=== PATIENT | male | born 1955 | race Caucasian/White ===

== ENCOUNTER → 2016-12-06 | Outpatient (CLI) | payer BC ==
[~2016-12-06] MED LIST: PANT1TAB48 PO
[2016-12-06 09:23] LABS: BASO % 0.4 %; BASO ABS # 0.03 K/uL (0-0.2); COMPLETE YES; EOS % 7.5 %; HEMATOCRIT 42.1 % (42-52); IG% 0.3 %; LYMPH % 26.5 %; MEAN CELL VOLUME 92.7 fL (80-100); MEAN CORPUSCULAR HEMOGLOBIN 31.3 pg (25-34); MEAN CORPUSCULAR HGB CONC 33.7 g/dl (32-36); MEAN PLATELET VOLUME 9.3 fL (7.4-10.4); MONO % 10.7 %; NEUT % 54.6 %; PLATELET COUNT 232 K/uL (130-400); RED BLOOD COUNT 4.54 M/uL (4.7-6.1); WHITE BLOOD COUNT 7.18 K/uL (4.8-10.8)
[2016-12-06 10:17] LABS: BLOOD UREA NITROGEN 19 mg/dl (7-18); BUN/CREATININE RATIO 18.8 (10-20); CALCIUM 8.4 mg/dl (8.5-10.1); CARBON DIOXIDE 29 mmol/L (21-32); CHLORIDE 108 mmol/L (98-107); CHOLESTEROL 181 mg/dl (0-200); CREATININE 0.99 mg/dl (0.60-1.40); GLUCOSE 106 mg/dl (70-99); POTASSIUM 4.2 mmol/L (3.5-5.1); SODIUM 144 mmol/L (136-145)
[2016-12-06 10:21] LABS: CHOLESTEROL/HDL RATIO 4.3; HDL CHOLESTEROL 42 mg/dl; LDL CHOLESTEROL CALCULATED 120 mg/dl; PROSTATE SPECIFIC ANTIGEN 0.844 ng/ml (0.000-4.000); TRIGLYCERIDES 96 mg/dl (0-150); VERY LOW DENSITY LIPOPROT CALC 19 mg/dl
== END | disposition home or self-care (01) ==
LOC: C.LAB1850 08:39
PROVIDERS: ATTEND Internal Medicine
DX: Z12.5 Encounter for screening for malignant neoplasm of prostate (principal); Z13.220 Encounter for screening for lipoid disorders; Z13.1 Encounter for screening for diabetes mellitus; K26.9 Duodenal ulcer, unspecified as acute or chronic, without hemorrhage or perforation

== ENCOUNTER → 2017-03-13 | Outpatient (CLI) | payer BC ==
--- NOTE | 2017-03-13 12:55 | DIAGNOSTIC IMAGING REPORT ---
CHEST 2 VIEWS ROUTINE HISTORY: ACUTE BRONCHITIS COMPARISON: Chest 07/17/2013. FINDINGS: The lungs are clear. Cardiac silhouette is normal in size. No pleural effusions. No pneumothorax. IMPRESSION: No acute process. Electronically signed by: Jim Renee M.D. 03/13/2017 12:53 PM Dictated Date/Time: 03/13/2017 12:50 PM
== END | disposition home or self-care (01) ==
LOC: C.RADBC 12:15
PROVIDERS: ATTEND Physician Assistant Medical
DX: J20.9 Acute bronchitis, unspecified (principal)

== ENCOUNTER → 2017-11-18 | Outpatient (CLI) | payer BC ==
[~2017-11-18] MED LIST changes: +PANT1TAB3 PO; -PANT1TAB48 PO
[2017-11-18 10:34] LABS: BLOOD UREA NITROGEN 12 mg/dl (7-18); BUN/CREATININE RATIO 13.7 (10-20); CALCIUM 8.3 mg/dl (8.5-10.1); CARBON DIOXIDE 30 mmol/L (21-32); CHLORIDE 107 mmol/L (98-107); CREATININE 0.84 mg/dl (0.60-1.40); GLUCOSE 114 mg/dl (70-99); POTASSIUM 4.1 mmol/L (3.5-5.1); SODIUM 140 mmol/L (136-145)
[2017-11-18 10:39] LABS: CHOLESTEROL 155 mg/dl (0-200); CHOLESTEROL/HDL RATIO 3.8; HDL CHOLESTEROL 41 mg/dl; LDL CHOLESTEROL CALCULATED 98 mg/dl; PROSTATE SPECIFIC ANTIGEN 0.733 ng/ml (0.000-4.000); TRIGLYCERIDES 79 mg/dl (0-150); VERY LOW DENSITY LIPOPROT CALC 16 mg/dl
[2017-11-18 12:08] LABS: ESTIMATED AVERAGE GLUCOSE 128 mg/dl; HA1C FLAG Normal (Normal)
== END | disposition home or self-care (01) ==
LOC: C.LAB1850 09:14
PROVIDERS: ATTEND Internal Medicine
DX: Z12.5 Encounter for screening for malignant neoplasm of prostate (principal); I10 Essential (primary) hypertension; R73.9 Hyperglycemia, unspecified

== ENCOUNTER 2020-03-27 08:03 | Inpatient (IN) ==
--- NOTE | 2020-03-23 11:10 | Anesthesiology Consultation ---
Date of Service March 23, 2020 Assessment & Plan (1) Encounter for pre-operative examination: Chart Review Chart Review: Acceptable Risk for Surgery (pending anesthesiologist discretion AM of surgery after evaluation ) and Patient NOT seen in Pre Admission Testing EKG showed new onset septal infarct. Did discuss with Dr. Benitez. Will leave to anesthesiologist discretion DOS if repeat EKG needed. Will also need to discuss functional status and if patient having any limiting factors such as chest pain, WATKINS/SOB. Chart review: Patient not seen at PAT/no RN phone interview at time of review. Chart review from available information. Will need to review PMHX/PSHX AM DOS. Will also need height and weight documented- per 03/22/20 general surgery note- BMI 34.2. Seen in ER on 03/16/20= seen for severe abdominal pain. No emergent surgery needed at that time. Set up to see general surgery as outpatient. [place] abdominal pain secondary to hernia. Seen by PCP 10/26/19= DM- Hgb A1C decreased from previous to 6.3. Hyperlipidemia and HTN- stable. 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 F/u in six months. History Surgery Operation Date: 03/27/20 08:10 Proposed Procedures p Laparoscopic Incarcerated Incisional Hernia Repair, Possible Open - Yury Cohen MD, FACS Allergies Allergy/AdvReac Type Severity Reaction Status Date / Time No Known Drug Allergies Allergy Verified 03/22/20 09:22 Medications Home Medications Medication Instructions Recorded Confirmed Last Taken amlodipine [Norvasc] 5 mg PO QAM 03/11/20 03/22/20 03/16/20 Past Medical History Medical History Diabetes Duodenal ulcer Dyslipidemia Epidermal cyst Hypertension Venous insufficiency Past Family History Family History Sister Cancer Mother Diabetes Other COPD (chronic obstructive pulmonary disease) Coronary heart disease Family history of diabetes mellitus Denies family history of Ovarian cancer Prostate cancer Myocardial infarction Breast cancer Colorectal cancer Past Surgical History Surgical History Esophageal dilatation History of pancreatic surgery 2004- Whipple Procedure S/P cholecystectomy S/P hernia repair (01/06/04) Right inguinal hernia with mesh 01/06/04 Dr. Cohen Social History Smoking Status: Former smoker Hx Alcohol Use: No (SOCIAL) Hx Substance Use: No Testing Laboratory Results Laboratory Tests 10/22/19 03/16/20 03/16/20 07:50 14:13 14:13 WBC 6.60 Hgb 14.0 Hct 42.2 Plt Count 253 Sodium 137 Potassium 3.9 Chloride 109 H Carbon Dioxide 29 BUN 12 Creatinine 0.99 Glucose 170 H Hemoglobin A1c 6.3 H Electrocardiogram Date: 03/16/20 Findings: + SB @ (52bpm) Left axis deviation. Incomplete RBBB. Septal infarct, age undetermined. Non specific T wave abnormality. Compared to EKG from Jul 19, 2013, Incomplete RBBB has replaced non specific intraventricular conduction delay; spetal infarct now present. Chest X-Ray Date: 03/16/20 Findings: + NAD
[~2020-03-27 08:03] MED LIST changes: +CEFAZOLIN 2000MG 2,000 MG/15 ML SYR IV SCH; +LR 15ML/HR IV SCH; -PANT1TAB3 PO
[2020-03-27] MEDS ORDERED: ATROPINE SULFATE 0.1 MG/ML 10ML SYR IV PRN (08:59)
[2020-03-27] MEDS ORDERED: fentaNYL citrate 100 MCG/2 ML VIAL IV PRN (08:59)
[2020-03-27] MEDS ORDERED: ONDANSETRON INJ 2 MG/ML 2 ML VIAL IV PRN ×2 (08:59→15:08)
[2020-03-27] MEDS ORDERED: ePHEDrine sulfate 50 MG/ML AMP IV PRN (08:59)
[2020-03-27] MEDS ORDERED: PROPOFOL IV EMULSION 10 MG/ML 20 ML VIAL IV ONE (09:45)
[2020-03-27] MEDS ORDERED: ROCURONIUM BROMIDE 10 MG/ML 5 ML VIAL ONE ×2 (09:45→10:03)
[2020-03-27] MEDS ORDERED: LIDOCAINE HCL 2% 2 ML VIAL/AMP(20MG/ML) INFIL ONE (09:45)
[2020-03-27] MEDS ORDERED: GLYCOPYRROLATE 0.2 MG/ML VIAL ONE ×2 (09:45→14:16)
[2020-03-27] MEDS ORDERED: ONDANSETRON INJ 2 MG/ML 2 ML VIAL ONE (09:45)
[2020-03-27] MEDS ORDERED: MIDAZOLAM HCL 1 MG/ML 2ML VIAL ONE (09:45)
[2020-03-27] MEDS ORDERED: NEOSTIGMINE METHYLSULFATE 5 MG/5 ML SYR ONE (09:45)
[2020-03-27] MEDS ORDERED: fentaNYL citrate 100 MCG/2 ML VIAL ONE (09:46)
[2020-03-27] MEDS ORDERED: BUPIVACAINE 0.5 % 5 MG/1 ML MPF 30ML VIAL ONE (09:56)
[2020-03-27] MEDS ORDERED: LIDOCAINE HCL 1% 20 ML VIAL ONE (09:57)
--- NOTE | 2020-03-27 10:07 | History & Physical Bridge Note ---
Date of Service March 27, 2020 History & Physical Bridge Note I have examined the patient, reviewed the History & Physical and in the interval since the performance of the History & Physical I have noted the following changes of clinical significance: no changes noted
[2020-03-27] MEDS ORDERED: CEFAZOLIN 250 MG/ML 1 GM VIAL ONE (10:09)
[2020-03-27] MEDS ORDERED: HEPARIN SOD 5,000 UNIT/0.5 ML VIAL SQ STA (10:09)
[2020-03-27] MEDS ORDERED: HEPARIN SOD 5,000 UNIT/0.5 ML VIAL ONE (10:10)
[2020-03-27] MEDS ORDERED: ePHEDrine sulfate 50 MG/ML SYR ONE (11:09)
[2020-03-27] MEDS ORDERED: ACETAMINOPHEN 1000 MG/100 ML IV IV ONE (11:50)
[2020-03-27] MEDS ORDERED: HYDROmorphone INJ 2 MG/ML SYR/VIAL ONE (12:04)
[2020-03-27] MEDS ORDERED: PHENYLEPHRINE 100MCG/ML 5ML SYR ONE (13:19)
--- NOTE | 2020-03-27 13:27 | Post Operative Brief Note ---
PG Immediate Post Op with CF Date of Surgery March 27, 2020 Pre & Post Diagnosis Operation Date: 03/27/20 10:40 Pre-Op Diagnosis: Incarcerated Incisional Hernia Post-Op Diagnosis: Incarcerated Incisional Hernia I identified the patient and participated in the time-out.: Yes Procedure Operation Date: 03/27/20 10:40 Actual Procedures p Laparoscopy, Open Incarcerated Incisional Hernia Repair with Mesh(Not Applicable) - Yury Cohen MD, FACS Surgeon Yury Cohen MD, FACS [employer] Inspector Gianna Vallejo Estimated Blood Loss 50 Findings Consistent with Post-Op Diagnosis Specimens Specimen Description: Permanent: A: Hernia Sac & contents Drains Olivera Catheter (16fr inserted by Margi Preston RN without difficulty) and Jeronimo- Cho Drain (x2)
--- NOTE | 2020-03-27 14:00 | Operative Report (OR) ---
DATE OF OPERATION: 03/27/2020 NAME OF OPERATION: Laparoscopy with open incisional hernia repair with mesh. PREOPERATIVE DIAGNOSIS: Incisional hernia with incarceration. POSTOPERATIVE DIAGNOSIS: Incisional hernia with incarceration. STAFF SURGEON: Yury Cohen MD. SANITARIAN AIDE: Caroline Vallejo PA-C ANESTHESIA: General. DESCRIPTION OF PROCEDURE: The patient was brought in the operating room and placed on the operating table in supine position. His abdomen was prepped and draped in usual fashion. Pneumatic stockings, orogastric tube were placed. My autopsy assistant helped with prepping, draping, repair of the hernia and closure of the wounds. Initially, the skin and subcutaneous tissue were anesthetized on the left side. Incision made carrying dissection down, entering the abdominal cavity under visualization, placing a 5 mm port, producing pneumoperitoneum. A balloon cannula was then placed at this level and then under visualization, two 5 mm ports were placed just below the balloon cannula on the left side. The patient had a significant incarcerated hernia just above the umbilicus, which was within the incision and also a second defect above that containing small bowel and colon. The dissection was extremely difficult secondary to adhesions and I was concerned there would be an injury to the bowel and I was unable to reduce the initial hernia with the adipose tissue; therefore, we removed the ports and made an incision in the midline over the hernia through previous scar tissue carrying dissection down identifying the hernia sac, opening the sac, excising part of the sac and contents and then the small bowel and colon were very adherent through a separate area above this and these adhesions were taken down. There was some serosal opening, but no enterotomies. The serosa was repaired with interrupted 3-0 silk suture of the small bowel. I was able to mobilize the tissue in a subfascial fashion well around the defect, which was approximately 5-6 cm in length. I chose a piece of coated polypropylene, which was C-QUR. I trimmed it to approximately 10 cm diameter and then placed in a retrofascial fashion with interrupted #1 Ethibond suture, being careful to keep the coated part of the mesh toward the bowel. I was not able to close the fascia because of the size of the hernia and tension. Therefore, two #15 round Jeronimo-Cho drains were placed in the subcutaneous space. Subcutaneous tissue reapproximated using 2-0 plain suture and then the skin reapproximated using charlie and 3-0 nylon. The lateral incisions were closed using subcuticular 4-0 Monocryl for the upper larger incision with Steri-Strips and then 4-0 nylon for the lower incisions. The patient did have a Olivera catheter in place, which was to be left in place. He was taken to recovery room in stable condition. I attest to the content of the Intraoperative Record and any orders documented therein. Any exception s are noted below.
--- NOTE | 2020-03-27 14:42 | Anesthesiology Progress Note ---
Date of Service March 27, 2020 Anesthesia Post Procedure Vital Signs Vital Signs: Temp Pulse Pulse Resp BP Pulse Ox 03/27/20 14:35 97.2 F L 46 L 17 137/76 95 03/27/20 14:25 97.2 F L 48 L 16 129/72 94 03/27/20 14:15 51 L 15 143/81 H 98 03/27/20 14:07 97.5 F L 53 L 18 143/81 H 99 03/27/20 08:33 98.4 F 54 L 20 149/81 H 96 Transfer of Care Handoff Completed per policy Notes Mental Status: alert / awake / arousable and participated in evaluation Patient Amnestic to Procedure: Yes Nausea / Vomiting: adequately controlled Pain: adequately controlled Airway Patency, RR, SpO2: stable & adequate BP & HR: stable & adequate Hydration State: stable & adequate Anesthetic Complications: no major complications apparent and Pt Satisfied with anesthetic care
[2020-03-27] MEDS ORDERED: PROMETHAZINE HCL 25 MG in SODIUM CHLORIDE 0.9% 50 ML IV PRN (15:08)
[2020-03-27] MEDS ORDERED: HYDROmorphone INJ 0.5 MG/0.5 ML SYR IV PRN (15:08)
[2020-03-27] MEDS ORDERED: HYDROmorphone INJ 1 MG/ML SYRINGE IV PRN (15:08)
[2020-03-27] MEDS ORDERED: PROMETHAZINE HCL 12.5 MG in SODIUM CHLORIDE 0.9% 50 ML IV PRN (15:08)
[2020-03-27] MEDS: NSS + 20MEQ KCL 20 MEQ/1,000 ML BAG IV SCH (16:20)
--- NOTE | 2020-03-27 17:54 | Hospitalist Consultation ---
Date of Consultation March 27, 2020 Assessment & Plan (1) Incarcerated incisional hernia: management per primary service. SP repair (2) Diabetes: Currently in prediabetic range. Continue life style changes. (3) Dyslipidemia: LDL at goal at 98. will recommend rechecking as an outpatient. (4) Hypertension: B/P at goal. Continue amlodipine. DVT proph: as per primary service. Thank you for allowing us to participate in the care of your patient. If any issue arises, please do not hesitate to contact us. Will sign off. History of Present Illness Reason for Consultation: Medical Management Attending Physician: Yury Cohen MD, FACS History of Present Illness 64 yo male who is admitted with incarcerated ventral hernia, S/P repair. Patient has history of hypertension and prediabetes. Patient reports feeling sore at the surgical site. Patient denies any fever, chills, nausea, vomiting. Allergies Allergy/AdvReac Type Severity Reaction Status Date / Time No Known Drug Allergies Allergy Verified 03/27/20 08:31 Home Medications Home Medications Medication Instructions Recorded Confirmed Type amlodipine [Norvasc] 5 mg PO QAM 03/11/20 03/27/20 History vit C,A-Ik-ijbxr-lutein-zeaxan 1 tab PO QAM 03/24/20 03/27/20 History [PreserVision AREDS-2] Patient History Medical History Duodenal ulcer Epidermal cyst left underarm GI bleed history of Hypertension Macular degeneration monthly eye injection Pleurisy 30+ years ago Prediabetes diet controlled Pulmonary embolism x2 in 2004 Surgical History Esophageal dilatation History of adenoidectomy History of colonoscopy History of esophagogastroduodenoscopy (EGD) History of pancreatic surgery 2004- Whipple Procedure History of tonsillectomy S/P cholecystectomy S/P hernia repair (01/06/04) Right inguinal hernia with mesh 01/06/04 Dr. 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 Other Information That Helps Us Care for You: No Feels Safe at Home: Yes Safety Concerns: Feels Safe At This Time Smoking Status: Former smoker Tobacco Type: cigarettes ; packs per day: 1 ; Smoking End Date: 1988 ; Second Hand Exposure: No ; Hx Alcohol Use: No Hx Substance Use: No Dental Care, Regularly: Yes Seatbelt Use: always Sunscreen Use: No Review of Systems Constitutional: no fever, no sweats and no malaise Eyes: no blind spots, no diplopia and no discharge Ear, Nose, Mouth, Throat: no ear trauma and no hyperacusis Respiratory: no change in sputum Cardiovascular: no chest pain with activity Gastrointestinal: no bloating and no hematemesis Musculoskeletal: no radicular pain Integumentary: no rash Neurologic: no falls and no paralysis Psychiatric: no hopelessness Physical Exam Constitutional: WD/WN, vitals as above well developed Eyes: PERRL, conjunctivae normal, anicteric sclerae Neck: trachea midline, no thyromegaly Respiratory: normal respiratory effort, lungs clear to auscultation Cardiovascular: RRR, no murmur, no edema Gastrointestinal (Abdomen): tender to superficial palpation, abd. binder noted. Skin: no rashes, warm and dry Psychiatric: A+Ox3, euthymic affect Results & Data Results & Data ([facility]) Vital Signs (Past 12 Hours) Vital Signs Temp Pulse Pulse Resp BP Pulse Ox 03/27/20 16:45 36.6 C 52 L 17 131/74 100 03/27/20 15:51 36.6 C 48 L 17 130/75 95 03/27/20 15:17 36.7 C 48 L 16 124/73 95 03/27/20 14:45 36.7 C 56 L 16 153/82 H 93 03/27/20 14:35 36.2 C L 46 L 17 137/76 95 03/27/20 14:25 36.2 C L 48 L 16 129/72 94 03/27/20 14:15 51 L 15 143/81 H 98 03/27/20 14:07 36.4 C L 53 L 18 143/81 H 99 03/27/20 08:33 36.9 C 54 L 20 149/81 H 96 PG Care Time/CCT Total # of Minutes Spent Total Time Spent with Patient: Total time spent is greater than 50% in coordination of care (as documented) at patient's floor/unit and/or counseling patient: Coding Level of Care Code 86304 Inpt Consult Level 3 Diagnoses Incarcerated incisional hernia K43.0 Diabetes E11.9 Dyslipidemia E78.5 Hypertension I10 Time Spent (min) 35
[2020-03-27] MEDS: CEFAZOLIN 1000MG 1,000 MG/7.5 ML SYR IV SCH (18:03)
[2020-03-27] MEDS: MAGNESIUM HYDROXIDE SUSP 30 ML UDC PO SCH (20:41)
[2020-03-27] MEDS: DOCUSATE SODIUM/SENNA 50/8.6MG TAB PO SCH (20:41)
[2020-03-28] MEDS: CEFAZOLIN 1000MG 1,000 MG/7.5 ML SYR IV SCH ×3 (03:00→18:46)
[2020-03-28] MEDS: NSS + 20MEQ KCL 20 MEQ/1,000 ML BAG IV SCH ×2 (04:52→21:09)
[2020-03-28 05:46] LABS: Basophils # (auto) 0.02 K/uL (0-0.2); Basophils % (auto) 0.2 %; Eosinophils # (auto) 0.35 K/uL (0-0.5); Hematocrit (blood only) 40.3 % (42-52); Hemoglobin 13.4 g/dL (14.0-18.0); Immature Granulocytes # (auto) 0.04 K/uL (0.00-0.02); Immature Granulocytes % (auto) 0.5 %; Lymphocytes % (auto) 17.1 %; Mean Corpuscular Hemoglobin 31.9 pg (25-34); Mean Corpuscular Hgb Conc 33.3 g/dL (32-36); Mean Platelet Volume 8.8 fL (7.4-10.4); Monocytes # (auto) 0.92 K/uL (0.11-0.59); Monocytes % (auto) 10.5 %; Neutrophils # (auto) 5.95 K/uL (1.4-6.5); Neutrophils % (auto) 67.7 %; Platelet Count 280 K/uL (130-400); RDW Coefficient of Variation 13.1 % (11.5-14.5); RDW Standard Deviation 45.6 fL (36.4-46.3); White Blood Count 8.78 K/uL (4.8-10.8)
[2020-03-28 06:19] LABS: BUN Creatinine Ratio 15.2 (10-20); Calcium 8.2 mg/dl (8.5-10.1); Est GFR (African American) 105.5; Magnesium 2.3 mg/dl (1.8-2.4); Potassium 4.1 mmol/L (3.5-5.1)
[2020-03-28 06:22] LABS: Albumin Globulin Ratio 0.9 (0.9-2); Bilirubin,Total 0.8 mg/dl (0.2-1); Globulin 3.3 gm/dl (2.5-4.0); Phosphorus 3.4 mg/dl (2.5-4.9); Total Protein 6.3 gm/dl (6.4-8.2)
[2020-03-28] MEDS ORDERED: KETOROLAC TROMETHAMINE 15 MG/ML VIAL IV PRN (06:27)
[2020-03-28] MEDS ORDERED: HYDROCODONE/ACETAMOPHEN 5/325MG TAB PO PRN ×2 (06:27)
--- NOTE | 2020-03-28 06:31 | Surgery Progress Note ---
Date of Service March 28, 2020 Assessment & Plan (1) S/P hernia repair: vitals stable good ur output serous drainage d/c alexander, full liquids, po pain meds, add Toradol cont IV atbx ambulate, monitor for ileus Results & Data Vital Signs (Past 12 Hours) Vital Signs Temp Pulse Resp BP BP Pulse Ox 03/28/20 03:05 95 03/28/20 03:02 37.2 C 65 15 141/79 H 90 03/27/20 23:02 37.0 C 62 18 121/76 94 03/27/20 19:31 36.8 C 60 17 145/85 H 96 PG Care Time/CCT Total # of Minutes Spent Total Time Spent with Patient: Total time spent is greater than 50% in coordination of care (as documented) at patient's floor/unit and/or counseling patient: Coding Level of Care Code None Diagnoses S/P hernia repair Z98.890; Z87.19
[2020-03-28] MEDS: KETOROLAC TROMETHAMINE 15 MG/ML VIAL IV SCH ×4 (06:46→23:07)
[2020-03-28] MEDS: DOCUSATE SODIUM/SENNA 50/8.6MG TAB PO SCH ×2 (08:44→21:11)
[2020-03-28] MEDS: MAGNESIUM HYDROXIDE SUSP 30 ML UDC PO SCH ×2 (08:44→21:12)
[2020-03-28] MEDS: AMLODIPINE BESYLATE 5 MG TAB PO SCH (08:44)
[2020-03-28] MEDS: HEPARIN SOD 5,000 UNIT/0.5 ML VIAL SQ SCH ×2 (08:44→21:11)
[2020-03-29] MEDS: CEFAZOLIN 1000MG 1,000 MG/7.5 ML SYR IV SCH ×2 (02:32→08:33)
[2020-03-29] MEDS: KETOROLAC TROMETHAMINE 15 MG/ML VIAL IV SCH ×2 (05:42→13:06)
--- NOTE | 2020-03-29 07:38 | Surgery Progress Note ---
Date of Service March 29, 2020 Assessment & Plan (1) S/P hernia repair: doing well feels like flatus coming good ur output- voiding min pain min drainage- remove Lt drain- home with rt d/c today- cont Atbx po, norco, sen S and MOM ambulate Results & Data Vital Signs (Past 12 Hours) Vital Signs Temp Pulse Resp BP Pulse Ox 03/28/20 23:17 37.0 C 61 16 136/86 91 PG Care Time/CCT Total # of Minutes Spent Total Time Spent with Patient: Total time spent is greater than 50% in coordination of care (as documented) at patient's floor/unit and/or counseling patient: Coding Level of Care Code None Diagnoses S/P hernia repair Z98.890; Z87.19
[2020-03-29] MEDS: AMLODIPINE BESYLATE 5 MG TAB PO SCH (08:30)
[2020-03-29] MEDS: HEPARIN SOD 5,000 UNIT/0.5 ML VIAL SQ SCH (08:31)
[2020-03-29] MEDS: DOCUSATE SODIUM/SENNA 50/8.6MG TAB PO SCH (08:31)
[2020-03-29] MEDS: MAGNESIUM HYDROXIDE SUSP 30 ML UDC PO SCH (08:31)
--- NOTE | 2020-03-29 09:11 | Discharge Summary (DS) ---
PRINCIPAL DIAGNOSIS: Incisional hernia. PROCEDURES: The patient underwent laparoscopy and then open incisional hernia repair. HOSPITAL COURSE: The patient was brought in the hospital on 03/27/2020 where he underwent laparoscopy and then open incisional hernia repair. The patient has been doing quite well and is taking minimal pain medication, has minimal drainage, is moving quite well and walking in the hallway. I do feel he is stable for discharge home today, to be followed in the Surgical Clinic within 1-2 weeks.
== END 2020-03-29 13:26 | disposition home or self-care (01) | DRG 337 ==
LOC: ASU 08:03 → 3E 13:35